=== PATIENT | male | born 1950 | race Caucasian/White ===

== ENCOUNTER → 2023-09-16 09:36 | Outpatient (REF) | payer MEDICARE, SELFPAY | LOC: HWRAD 09:36 | PROVIDERS: ATTENDING PHYSICIAN Family Medicine | DX: M25.561 Pain in right knee (principal) | CPT/HCPCS: 73564 ==

== ENCOUNTER 2023-10-10 16:46 | Observation (INO) | payer MEDICARE, SELFPAY ==
[2023-10-10] VITALS (10 sets, daily range): BP systolic 136–171; BP diastolic 74–92; BMI 39.2
--- NOTE | 2023-10-10 10:34 | ED.GENMED ---
History of Present Illness
<Tea Cruz PA-C - Last Filed: 10/10/23 18:32>
General
Chief Complaint: Breathing Problem
Source: patient
Exam Limitations: none
Time Seen by Provider: 10/10/23 10:23
Nursing documentation reviewed up to this point in time: agreed with
History of Present Illness
History of Present Illness:
73-year-old male with a history of hypertension, hyperlipidemia, 2 unprovoked DVT and 1 PE not anticoagulated
Presents for 3 days of shortness of breath. 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 There was dust that came up into the air from the ground. He is not sure if that exacerbated the
symptoms. He does have a diagnosis of COPD and used to smoke for 40 years. He has not smoked in several years. He is on Anoro inhaler and has a rescue albuterol inhaler which he did try which did not give him any relief. He did not recall
coughing or any initial symptoms while he was in his chicken coop.
What he is mostly feeling is exertional fatigue and dyspnea with some mild degree of chest pressure at times. He says normally he can walk up a flight of steps and sometimes he will be a little bit winded but more recently since Tuesday he has
been much more short of breath than usual. He also has a very subtle discomfort in his chest but she is not sure if that is anxiety.
Patient has no chest pressure at rest. He is not having a fever, cough, hemoptysis, worsening leg swelling than usual. Previously he had a DVT in his left leg that did embolized to his lungs. This leg is always slightly larger than the right.
Sometimes his legs do swell up during the day and go down at night and he is on a diuretic. He does not feel like his legs are more swollen than normal. He does not have any leg pain.
He recently stopped his baby aspirin because he was finding that he was bruising or bleeding easily.
He had a cardiac cath in 2021 showing nonocclusive coronary disease
No intervention
Past History
<Tea Cruz PA-C - Last Filed: 10/10/23 18:32>
Past History
ED Past Medical History: Cancer, HTN, Hypercholesterolemia and Other
ED Past Surgical History: Other
Social History
Tobacco: Former smoker
Personal:
Living: with family
Employment: Employed
Review of Systems
<Tea Cruz PA-C - Last Filed: 10/10/23 18:32>
Review of Systems
Allergies reviewed?: Yes
All Other Systems: Not applicable
Phy Exam
<Tea Cruz PA-C - Last Filed: 10/10/23 18:32>
Physical Exam
Physical Exam:
GENERAL: Alert , in no apparent distress
EYE: pupils equal and reactive
NECK: Supple
ENT: o/p clr, mmm.
CARDIAC: Regular rate and rhythm .
LUNGS: Clear breath sounds bilaterally, no acute respiratory distress, no wheezes/rales/rhonchi
ABDOMEN: Soft, without focal tenderness, no r/g, no cvat, normal bowel sounds
NEUROLOGICAL: Alert and oriented, no focal neuro deficits
SKIN: Warm and dry, skin intact.
MUSCULOSKELETAL: No edema, well perfused. neg erasto's sign
PSYCH: Normal and appropriate interaction.
Scores
<Tea Cruz PA-C - Last Filed: 10/10/23 18:32>
Heart Failure Risk
Heart Failure Risk Score: Not Applicable
Course
<Tea Cruz PA-C - Last Filed: 10/10/23 18:32>
Orders/Labs/Results
Orders:
Orders
10/10/23 10:12
Electrocardiogram (*1) Urgent
Reason for Study: Shortness of Breath
EKG- Treatment ONCE
10/10/23 10:33
Cardiac Monitoring- Treatment ONCE
10/10/23 10:46
Ipratropium/Albuterol Sulfate [Duoneb] 3 ml INH R NOW ONE
10/10/23 10:50
Complete Blood Count/With Diff Urgent
Comprehensive Metabolic Panel Urgent
D-Dimer Urgent
NT-proBNP Urgent
Troponin I Urgent
10/10/23 11:23
CT Chest Pe Study Urgent
Comment:
Reason For Exam: sob, h/o dvt/pe, not anticoag
10/10/23 12:53
Venous Doppler Lwr Ext Bilat [US Periph Venous LOWER Ext Anthony] Urgent
Comment:
Reason For Exam: h/o dvt, sob
10/10/23 13:39
EKG [Electrocardiogram (*1)] Urgent
Reason for Study: Chest Pain
EKG- Treatment ONCE
10/10/23 14:11
Consult Cardiology [CARDIOLOGY CONSULT] Urgent
Consulting Provider: Júnior Benson
Was physician already notified: Yes
10/10/23 14:36
Troponin I Urgent
10/10/23 Dinner
Cholesterol Lowering
At Your Request: Full Participation
Cholesterol Lowering: Sodium, 2 Gram
10/10/23 16:02
Admit/Transfer Patient As Directed
Co-Sign Provider:
Level of Care: Observation services
Assign to:: Telemetry
Physician / Group: Dr Franco
Diagnosis: Chest pain/SOB
Reason for Telemetry: Chest Pain syndromes
Date to Stop Telemetry: 10/12/23
Time to Stop Telemetry: 11:00
PRN Pain Medication Management As Directed
May give lesser potent ordered pain med per pt: Yes
preference::
Protocol:: Medication orders for pain may be administered in a
manner that supports deferring to patient preference
when the pt is:
- Requesting an ordered lesser potent pain medication.
Least to most potent pain medications are defined
as: acetaminophen < NSAID < tramadol < opioids
(morphine, oxycodone, hydromorphone).
- Requesting a lesser dose of the same medication IF
ORDERED.
- Requesting a less intrusive route of administration
if both routes are prescribed by the provider (PO <
IV).
10/10/23 16:03
Code Status As Directed
Resuscitation Status: Full Code
10/10/23 17:22
Albuterol [ProAIR HFA INHALER] 2 puff INH R Q6HPRN PRN
Bisacodyl [Dulcolax] 10 mg RECTAL [id number] PRN
Docusate W/Senna [Senokot-S] 1 tablet PO BIDPRN PRN
Polyethylene Glycol Powder [Miralax] 17 grams PO DAILYPRN PRN
10/10/23 17:22
Activity As Directed
Activity Level: Out of Bed-Early Mobility
Vital Signs As Directed
Frequency: Per unit guidelines
DX Deep Vein Thrombosis Video Routine
10/10/23 18:00
Atenolol [Tenormin] 50 mg PO QPM
Enoxaparin Sodium [Lovenox] 40 mg SC QPM
Finasteride [Proscar] 5 mg PO QPM
Hydrochlorothiazide [Oretic] 25 mg PO QPM
Rosuvastatin Calcium [Crestor] 40 mg PO QPM
Spironolactone [Aldactone] 25 mg PO QPM
10/10/23 20:00
Troponin I Q8H
10/11/23 04:00
Troponin I Q8H
10/11/23 06:00
Basic Metabolic Panel IN AM
Complete Blood Count/With Diff IN AM
Levothyroxine [Synthroid] 150 mcg PO DAILY@0600
10/11/23 08:00
Aspirin Chewable [Low Strength Aspirin] 81 mg PO DAILY
fluticasone propionate 2 spray NASAL DAILY
10/12/23 11:00
DC Protocol for Telemetry ONCE
Abnormal Lab Results
10/10/23
10:50
Plt Count 122 L 10^3/uL
(130-400)
Abs Immat Gran (auto) 0.1 H 10^3/uL
(0-0.05)
Absolute Monos (auto) 0.7 H 10^3/uL
(0.1-0.6)
Immature Gran % 0.7 H %
(0-0.5)
Lymphocytes % 16.3 L %
(20.5-51.1)
Monocytes % 9.4 H %
(1.7-9.3)
D-Dimer 3.36 H ug/mlFEU
(0.00-0.50)
BUN 36 H mg/dl
(9-20)
10/10/23 10:50
10/10/23 10:50
Vital Signs
Initial and Last Documented VS:
Initial Vital Signs
Temp Pulse Resp BP Pulse Ox
98.0 F 59 16 150/84 98
10/10/23 10:10 10/10/23 10:10 10/10/23 10:10 10/10/23 10:10 10/10/23 10:10
Last Documented Vital Signs
Temp Pulse Resp BP Pulse Ox
98 F 56 17 147/92 94
10/10/23 17:50 10/10/23 17:50 10/10/23 17:50 10/10/23 17:50 10/10/23 18:22
<Anderson Irwin, DO - Last Filed: 10/10/23 15:44>
Orders/Labs/Results
Orders:
Orders
10/10/23 10:12
Electrocardiogram (*1) Urgent
Reason for Study: Shortness of Breath
EKG- Treatment ONCE
10/10/23 10:33
Cardiac Monitoring- Treatment ONCE
10/10/23 10:46
Ipratropium/Albuterol Sulfate [Duoneb] 3 ml INH R NOW ONE
10/10/23 10:50
Complete Blood Count/With Diff Urgent
Comprehensive Metabolic Panel Urgent
D-Dimer Urgent
NT-proBNP Urgent
Troponin I Urgent
10/10/23 11:23
CT Chest Pe Study Urgent
Comment:
Reason For Exam: sob, h/o dvt/pe, not anticoag
10/10/23 12:53
Venous Doppler Lwr Ext Bilat [US Periph Venous LOWER Ext Anthony] Urgent
Comment:
Reason For Exam: h/o dvt, sob
10/10/23 13:39
EKG [Electrocardiogram (*1)] Urgent
Reason for Study: Chest Pain
EKG- Treatment ONCE
10/10/23 14:11
Consult Cardiology [CARDIOLOGY CONSULT] Urgent
Consulting Provider: Júnior Benson
Was physician already notified: Yes
10/10/23 14:36
Troponin I Urgent
10/10/23 Dinner
Cholesterol Lowering
At Your Request: Full Participation
Cholesterol Lowering: Sodium, 2 Gram
10/10/23 16:02
Admit/Transfer Patient As Directed
Co-Sign Provider:
Level of Care: Observation services
Assign to:: Telemetry
Physician / Group: Dr Franco
Diagnosis: Chest pain/SOB
Reason for Telemetry: Chest Pain syndromes
Date to Stop Telemetry: 10/12/23
Time to Stop Telemetry: 11:00
PRN Pain Medication Management As Directed
May give lesser potent ordered pain med per pt: Yes
preference::
Protocol:: Medication orders for pain may be administered in a
manner that supports deferring to patient preference
when the pt is:
- Requesting an ordered lesser potent pain medication.
Least to most potent pain medications are defined
as: acetaminophen < NSAID < tramadol < opioids
(morphine, oxycodone, hydromorphone).
- Requesting a lesser dose of the same medication IF
ORDERED.
- Requesting a less intrusive route of administration
if both routes are prescribed by the provider (PO <
IV).
10/10/23 16:03
Code Status As Directed
Resuscitation Status: Full Code
10/10/23 17:22
Albuterol [ProAIR HFA INHALER] 2 puff INH R Q6HPRN PRN
Bisacodyl [Dulcolax] 10 mg RECTAL [id number] PRN
Docusate W/Senna [Senokot-S] 1 tablet PO BIDPRN PRN
Polyethylene Glycol Powder [Miralax] 17 grams PO DAILYPRN PRN
10/10/23 17:22
Activity As Directed
Activity Level: Out of Bed-Early Mobility
Vital Signs As Directed
Frequency: Per unit guidelines
DX Deep Vein Thrombosis Video Routine
10/10/23 18:00
Atenolol [Tenormin] 50 mg PO QPM
Enoxaparin Sodium [Lovenox] 40 mg SC QPM
Finasteride [Proscar] 5 mg PO QPM
Hydrochlorothiazide [Oretic] 25 mg PO QPM
Rosuvastatin Calcium [Crestor] 40 mg PO QPM
Spironolactone [Aldactone] 25 mg PO QPM
10/10/23 20:00
Troponin I Q8H
10/11/23 04:00
Troponin I Q8H
10/11/23 06:00
Basic Metabolic Panel IN AM
Complete Blood Count/With Diff IN AM
Levothyroxine [Synthroid] 150 mcg PO DAILY@0600
10/11/23 08:00
Aspirin Chewable [Low Strength Aspirin] 81 mg PO DAILY
fluticasone propionate 2 spray NASAL DAILY
10/12/23 11:00
DC Protocol for Telemetry ONCE
Abnormal Lab Results
10/10/23
10:50
Plt Count 122 L 10^3/uL
(130-400)
Abs Immat Gran (auto) 0.1 H 10^3/uL
(0-0.05)
Absolute Monos (auto) 0.7 H 10^3/uL
(0.1-0.6)
Immature Gran % 0.7 H %
(0-0.5)
Lymphocytes % 16.3 L %
(20.5-51.1)
Monocytes % 9.4 H %
(1.7-9.3)
D-Dimer 3.36 H ug/mlFEU
(0.00-0.50)
BUN 36 H mg/dl
(9-20)
10/10/23 10:50
10/10/23 10:50
Vital Signs
Initial and Last Documented VS:
Initial Vital Signs
Temp Pulse Resp BP Pulse Ox
98.0 F 59 16 150/84 98
10/10/23 10:10 10/10/23 10:10 10/10/23 10:10 10/10/23 10:10 10/10/23 10:10
Last Documented Vital Signs
Temp Pulse Resp BP Pulse Ox
98 F 56 17 147/92 94
10/10/23 17:50 10/10/23 17:50 10/10/23 17:50 10/10/23 17:50 10/10/23 18:22
<Tea Cruz PA-C - Last Filed: 10/10/23 18:32>
MDM/Problems Addressed
Differential Diagnosis Includes:
cad, acs, copd, angina
MDM/Problems Addressed:
73 y/o M with htn, hld, nonocclusive CAD on cath by [facility] in 2021; has had 2 days of exertional dyspnea and some chest heaviness; does have COPD but idon't think that is the cause;
ekg nonischemic, trop neg
d dimer was elevated and he has PE history so i did a PE study which was neg but he has signfiicant aortic calcifications
given his concerning sypmtoms, will consult cardiology and dispo per their recommendation; d/w dr. irwin who took over care
<Tea Cruz PA-C - Last Filed: 10/10/23 18:32>
*Critical Care Note
Total Time (30-74mins, 75-104mins- exclusive of procedures): Not Applicable
ED Attending Note
<Tea Cruz PA-C - Last Filed: 10/10/23 18:32>
-
Portions of this chart may have been created with voice recognition software.� Occasional wrong word or��sound alike� substitutions may have occurred due to the inherent limitations of voice recognition software.
<Anderson Irwin, - Last Filed: 10/10/23 15:44>
ED Attending Note
Patient seen and examined by attending physician: Yes
I performed the substantive portion of visit, reviewed & personally made and approve the management plan that is documented in note by myself or KRISH.: Yes
ED Attending Note:
73-year-old male who presents with off-and-on chest discomfort and shortness of breath. Patient does admit to history of COPD. Symptoms have been ongoing for about 2 days. Does report tightness in his chest when it occurs. Exam: No wheezing,
heart regular, obese. Assessment plan: Evaluated by cardiology who recommends admit/ops given his CT findings and risks. I did review his cardiac catheterization from the past that did not show significant coronary disease. CT did show
calcification of his coronaries however.
Discharge Plan
Departure
Patient Disposition: Admit
Date of Disposition: 10/10/23
Time of Disposition: 15:44
Admit to: Telemetry
Presentation/result/management discussed w/ accepting MD/DO: Hospitalist
Discharge Problem:
Chest pain
Interventions
Interventions:
*Risk Screen - Suicide Last Done: 10/10/23 10:46
*General Assessment Last Done: 10/10/23 10:46
*Neglect/Abuse Screening Last Done: 10/10/23 10:46
ED- Fall Risk Assessment Last Done: 10/10/23 10:46
*ED COVID-19 Vaccine History Last Done: 10/10/23 10:46
*Nursing Disposition Last Done: 10/10/23 17:32
ED- Cardiac Assessment Last Done: 10/10/23 10:46
ED- Pulmonary Assessment Last Done: 10/10/23 10:46
Discharge Date and Time
Discharge Date/Time: 10/10/23 17:32
[2023-10-10 11:17] LABS: ALT (SGPT) 38 U/L (0-50); AST (SGOT) 34 U/L (17-59); Albumin 4.4 g/dl (3.5-5.0); Alkaline Phosphatase 58 U/L (38-126); Blood Urea Nitrogen 36 mg/dl (9-20); Calcium 9.4 mg/dl (8.4-10.2); Carbon Dioxide 26 mmol/L (22-30); Chloride 105 mmol/L (98-107); D-Dimer 3.36 ug/mlFEU (0.00-0.50); Glucose 96 mg/dl (70-99); Potassium 4.4 mmol/L (3.5-5.1); Sodium 141 mmol/L (135-145); Total Protein 6.8 g/dl (6.3-8.2); eGFR 58.01
[2023-10-10 11:18] LABS: % Basophils 0.5 % (0-2); % Eosinophils 2.1 % (0-6); % Immature Granulocytes 0.7 % (0-0.5); % Lymphocytes 16.3 % (20.5-51.1); % Monocytes 9.4 % (1.7-9.3); Absolute Eosinophils 0.2 10^3/uL (0-0.7); Absolute Immature Granulocytes 0.1 10^3/uL (0-0.05); Absolute Lymphocytes 1.2 10^3/uL (1.2-3.4); Absolute Monocytes 0.7 10^3/uL (0.1-0.6); Absolute Neutrophils 5.4 10^3/uL (1.4-6.5); Hematocrit 44.1 % (39.0-52.0); Mean Corpuscular Hgb 30.3 pg (27.0-31.0); Mean Corpuscular Volume 89.1 fL (80.0-94.0); Mean Platelet Volume 10.4 fL (7.4-10.4); Nucleated Red Blood Cells % 0 % (-); Platelet Count 122 10^3/uL (130-400); Red Blood Cell Count 4.95 10^6/uL (4.70-6.10); Red Cell Dist. Width 14.5 % (11.5-14.5); White Blood Cell Count 7.6 10^3/uL (4.8-10.8)
[2023-10-10] MEDS: DUONEB 3 ML INH (11:22)
[2023-10-10 11:29] LABS: NT-proBNP 240 pg/ml; Troponin I < 0.012 ng/ml
[2023-10-10 15:13] LABS: Troponin I < 0.012 ng/ml
--- NOTE | 2023-10-10 15:32 | CON.CAR ---
Addendum entered and electronically signed by Júnior Benson MD 10/10/23 17:14:
I saw and examined the patient.
The PROSTHETICS TECHNICIAN's note was reviewed and I agree with the note however I would suggest additional observation considering patient's history of nonobstructive disease and recurrent symptoms.
73 yo male with nonobstructive CAD on cath 02/2021, HTN, HLD, , RLE DVT 2018, LLE DVT 2019 and COPD episodic shortness of breath and chest discomfort over the last 2 days. 15-minute episode of feeling short of breath and also felt chest with some
sort of tight yesterday. Episode occurred about 10 minutes after doing some activity outside and working out the dust. Next episode occurred this morning after eating. And then he had a third episode. All episodes were self-limited. Exact
etiology unclear. ECG without ischemic changes first troponin unremarkable. Patient with known history of nonobstructive coronary disease. Possibility of angina is a consideration. Would also consider noncardiac causes. Patient has baseline
shortness of breath and COPD which may be contributing factors. Also possibility of GERD is a consideration.
-Observation
-Serial troponins
-Treatment of COPD as directed by primary team
-PPI
-Continue aspirin 81 mg a day
-If troponins remain unremarkable and patient remains chest pain-free then plan for Lexiscan in a.m.
-If patient with significant rise in troponins then would consider cardiac catheterization
Original Note:
Consultation
Consultation Request
Date/Time Consultation Requested: 10/10/23 3p
Date/Time Consultation Performed: 10/10/23 3:30p
Requesting Provider: Tea Cruz PA-C
Performing Provider: CLAUDIA Bellamy for Dr. Benson
Reason for Consultation: SOB/chest tightness
Medical History
-
Chief Complaint: SOB/chest tightness
History of Present Illness:
Mr. El is a 73 yo male with nonobstructive CAD on cath 02/2021, HTN, HLD, obesity, mild SOTERO, RLE DVT 2018 and LLE DVT 2019 and COPD, who presents to the ER with c/o SOB and chest tightness. He states chasing after his chickens to round them up on
Tuesday10/08/23 and after he sat down inside he felt SOB and mild chest tightness. This lasted for 15 mins and symptoms resolved on their own. He states is was daquan in the chicken coop and maybe dust got into his lungs. Then yesterday after
lunch he was sitting and again felt SOB with mild chest tightness, lasted 15 mins then resolved on its own. Today again he had the same symptoms after he was done doing light yard work, so he came in to be evaluated. Currently he denies any
symptoms. Chest CT showed no evidence of pulmonary embolism or thoracic aortic dissection, minimal bibasilar subsegmental atelectasis, otherwise clear lungs, pronounced coronary arterial calcification.
Past Medical History
Past Medical History: Other (as above)
Past Surgical History: Other (as above)
Social History
Tobacco: Former Smoker
Personal:
Living: With Family
Family History
Family History: Reviewed & Not Pertinent
Allergies / Home Medications
Allergy/AdvReac Type Severity Reaction Status Date / Time
No Known Allergies Allergy Verified 10/10/23 10:11
�Medication �Instructions �Recorded �Confirmed �Type
atenolol 50 mg tablet 50 mg PO QPM 12/28/18 02/27/21 History
atorvastatin 40 mg tablet 40 mg PO QPM 12/28/18 02/27/21 History
finasteride 5 mg tablet 5 mg PO QPM 12/28/18 02/27/21 History
fluticasone propionate 50 2 spray intranasal DAILY 12/28/18 02/27/21 History
mcg/actuation nasal
spray,suspension
hydrochlorothiazide 25 mg tablet 25 mg PO QPM 12/28/18 02/27/21 History
levothyroxine 200 mcg tablet 175 mcg PO DAILY 12/28/18 02/27/21 History
(Synthroid)
loratadine 10 mg tablet 10 mg PO DAILY 12/28/18 02/27/21 History
spironolactone 50 mg tablet 25 mg PO QPM 12/28/18 02/27/21 History
aspirin 81 mg tablet,delayed 81 mg PO QPM ##0 02/27/21 02/27/21 Rx
release (Aspir-Low)
umeclidinium 62.5 mcg-vilanterol 1 ea IH QPM 02/27/21 02/27/21 History
25 mcg/actuation powdr for
inhalation (Anoro Ellipta)
Review of Systems
-
History Source: Patient
All other systems: Negative unless noted
Physical Exam
Vital Signs
Temp Pulse Resp BP Pulse Ox
98.0 F 55 20 149/77 92
10/10/23 10:10 10/10/23 14:36 10/10/23 14:36 10/10/23 12:00 10/10/23 13:45
Lab Results
10/10/23 10:50
10/10/23 10:50
Troponin I < 0.012 ng/ml 10/10/23 14:36
Qlk-K-Issmkainnoa Pept 240 pg/ml 10/10/23 10:50
Physical Exam
General: Well Developed, Well Nourished and No Apparent Distress
HEENT: Normocephalic, Anicteric and Moist Mucous Membranes
Respiratory: Clear (diminished b/l bases)
Cardiac: S1/S2 and Regular Rhythm
Breast: Deferred by me
GI: Soft, Non Tender, Non Distended and Normal Bowel Sounds
Rectal: Deferred by Provider
Genito-urinary: No Costovertebral Tender
Musculoskeletal: No Clubbing, No Cyanosis and No Edema
Skin: Warm and Dry
Neuro: AO x 3
Psych: Calm
Impression / Plan
-
SOB and chest tightness - occurs after exertion when sitting.
- not during exertion.
- initial troponin < 0.012, second trop pending.
- if second troponin is negative, then can follow up as outpatient with Lexiscan nuclear stress test.
- if second troponin is abnormal, then admit observation and can have Lexiscan nuclear stress test tomorrow.
CAD - nonobstructive on cath 02/2021.
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
- he stopped ASA last month due to nuisance bleeding with scratches from the chickens.
- restart ASA 81mg daily.
COPD - chronic.
- managed by Dr. Almonte.
- mild SOTERO, noncompliant with CPAP mask in the summer due to heat.
HTN - stable.
- continue atenolol, HCTZ, Aldactone.
HLD - LDL 110 from 02/2023 on Lipitor 40mg daily.
- goal LDL is < 70.
Data Reviewed
-
EKG: Tracing Personally Visualized and interpreted (SB 51 bpm first degree AVB)
CT Scan: Report Reviewed by me (Chest CT showed no evidence of pulmonary embolism or thoracic aortic dissection, minimal bibasilar subsegmental atelectasis, otherwise clear lungs, pronounced coronary arterial calcification.)
Medical Tests (Nuc Med, Echo etc): Report Reviewed by me (cath 02/2021: nonobstructive CAD, 30% pLAD long area myocardial bridging in the mid LAD )
Labs: Labs Reviewed by me
Old Records: Reviewed
--- NOTE | 2023-10-10 16:06 | HPS.HSE ---
Family Physician
-
Family Physician: Olman Veras
Chief Complaint
-
Chest pain and shortness of breath
History of Present Illness
Patient is 73 years old male with history of hypertension, hyperlipidemia, PE, thyroid cancer with hypothyroidism on thyroid replacement, nonobstructive CAD, obesity, SOTERO, presented to the hospital with shortness of breath and chest discomfort.
Patient has been having symptoms over the last 2 days feeling short of breath on exertion associated with chest tightness midsternal with no radiation lasting a few minutes and resolving on its own. Chest pain unrelated to exertion. He did have
some work with his chickens and some light yard work and he has been having shortness of breath much worse and he was feeling anxious so decided to come to the hospital. He does have some lower extremity edema but that is mostly chronic but no leg
pain. Denies any fevers or chills. Denies any worsening cough. Denies any nausea vomiting or diarrhea. He had a CT scan of the chest no evidence of PE but showed some coronary calcifications. ED contacted cardiology who is seen him in the ER.
He was referred to hospitalist for further evaluation.
Medical History
Past Medical History
Past Medical History: Reports Other (Hypertension, hyperlipidemia, thyroid cancer, hypothyroidism, DVT/PE, COPD.)
Past Surgical History: Reports None
Social History
Tobacco: Former Smoker
Alcohol: None
Drug: None
Family History
Family History: CAD
Allergies / Home Medications
Allergies reflects when Allergies were last updated in [facility].
Home Medications with original date entered in [facility]
Allergy/Medication List:
Allergies
Allergy/AdvReac Type Severity Reaction Status Date / Time
No Known Allergies Allergy Verified 10/10/23 10:11
Home Medications
atenolol 50 mg tablet 50 mg PO QPM 12/28/18
atorvastatin 40 mg tablet 40 mg PO QPM 12/28/18
finasteride 5 mg tablet 5 mg PO QPM 12/28/18
fluticasone propionate 50 mcg/actuation nasal spray,suspension 2 spray intranasal DAILY 12/28/18
hydrochlorothiazide 25 mg tablet 25 mg PO QPM 12/28/18
levothyroxine 200 mcg tablet (Synthroid) 175 mcg PO DAILY 12/28/18
loratadine 10 mg tablet 10 mg PO DAILY 12/28/18
spironolactone 50 mg tablet 25 mg PO QPM 12/28/18
aspirin 81 mg tablet,delayed release (Aspir-Low) 81 mg PO QPM ##0 02/27/21
umeclidinium 62.5 mcg-vilanterol 25 mcg/actuation powdr for inhalation (Anoro Ellipta) 1 ea IH QPM 02/27/21
Review of Systems
-
A 12 point ROS was completed and negative except as noted: Yes
Physical Exam
Vital Signs
Vital Signs
Temp Pulse Resp BP Pulse Ox
98.0 F 53 16 136/74 92
10/10/23 10:10 10/10/23 15:45 10/10/23 15:45 10/10/23 14:39 10/10/23 15:45
Physical exam:
General: Well Developed, Well Nourished and No Apparent Distress
HEENT: Normocephalic, Atraumatic and Moist Mucous Membranes
Respiratory: Clear to Auscultation; Negative Wheezes, Rales or Rhonchi
Cardiac: Regular Rhythm and S1/S2
GI: Soft, Nontender and Nondistended
Musculoskeletal: Mild lower extremity edema bilaterally. No Clubbing, No Cyanosis
Neuro: Awake, Alert and Oriented
Psych: Calm
Physical Exam
General: Other
Laboratory Results
-
10/10/23 10:50
10/10/23 10:50
Laboratory Results
Total Bilirubin 1.0 mg/dl (0.2-1.3) 10/10/23 10:50
AST 34 U/L (17-59) 10/10/23 10:50
ALT 38 U/L (0-50) 10/10/23 10:50
Alkaline Phosphatase 58 U/L (38-126) 10/10/23 10:50
Troponin I < 0.012 ng/ml 10/10/23 14:36
Data Reviewed
-
Diagnostic Radiology: Image Personally Visualized and interpreted
Lab Data: Labs Reviewed by me
Impression/Plan
-
IMPRESSION:
Patient 73 years old male with history of hypertension, hyperlipidemia, DVT in the past, COPD, came into the hospital chest pain or shortness of breath. CTA negative for PE and ultrasound of the legs negative for DVT.
Impression:
Chest pain/shortness of breath-rule out ACS
Conditions prior to presentation:
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
Hyperlipidemia
COPD-no evidence of exacerbation
VTE
Hypothyroidism
PLAN:
Check cardiac enzymes
Resume aspirin (not very keen since he has bleeding from skin with minor trauma)
phototypesetting equipment monitor
Cardiology consult
Inhalers as needed
Continue home antihypertensives
Continue statins
Continue to replacement
Time spent 55-minute
--- NOTE | 2023-10-10 18:24 | PTCARENOTE ---
pt presents from ED via stretcher. pt is AAO*3, vss, room air. c/o slight pain mid epigastric/chest pain. pt is oriented to the room. call lucas within the reach. plan of care ongoing.
[2023-10-10] MEDS: TENORMIN 50 MG PO (18:31)
[2023-10-10] MEDS: ORETIC 25 MG PO (18:31)
[2023-10-10] MEDS: PROSCAR 5 MG PO (18:31)
[2023-10-10] MEDS: ALDACTONE 25 MG PO (18:31)
[2023-10-10] MEDS: CRESTOR 40 MG PO (19:17)
[2023-10-10] MEDS: SPIRIVA RESPIMAT 2.5 MCG 2 PUFF INH (19:49)
[2023-10-10] MEDS: STRIVERDI RESPIMAT 2 PUFF INH (19:50)
[2023-10-10 20:48] LABS: Troponin I < 0.012 ng/ml
[2023-10-11 03:30] VITALS: BP 148/89
[2023-10-11 05:09] LABS: Troponin I 0.026 ng/ml
[2023-10-11] MEDS: SYNTHROID 150 MCG PO (05:10)
[2023-10-11 05:24] LABS: Blood Urea Nitrogen 29 mg/dl (9-20); Calcium 9.6 mg/dl (8.4-10.2); Carbon Dioxide 27 mmol/L (22-30); Chloride 102 mmol/L (98-107); Estimated Creatinine Clearance 60 ml/min; Glucose 88 mg/dl (70-99); Potassium 4.6 mmol/L (3.5-5.1); Sodium 139 mmol/L (135-145); eGFR 53.07
[2023-10-11 05:31] LABS: % Basophils 0.4 % (0-2); % Eosinophils 2.7 % (0-6); % Immature Granulocytes 0.4 % (0-0.5); % Lymphocytes 21.7 % (20.5-51.1); % Monocytes 10.1 % (1.7-9.3); % Neutrophils 64.7 % (42.2-75.2); Absolute Eosinophils 0.2 10^3/uL (0-0.7); Absolute Lymphocytes 1.6 10^3/uL (1.2-3.4); Absolute Monocytes 0.8 10^3/uL (0.1-0.6); Absolute Neutrophils 4.9 10^3/uL (1.4-6.5); Hematocrit 46.2 % (39.0-52.0); Hemoglobin 15.6 g/dL (13.0-18.0); Mean Corp Hgb Conc. 33.8 g/dL (33.0-37.0); Mean Corpuscular Volume 91.8 fL (80.0-94.0); Nucleated Red Blood Cells % 0 % (-); Platelet Count 122 10^3/uL (130-400); Red Blood Cell Count 5.03 10^6/uL (4.70-6.10); Red Cell Dist. Width 14.3 % (11.5-14.5); White Blood Cell Count 7.5 10^3/uL (4.8-10.8)
[2023-10-11 06:00] VITALS: BMI 39.0
[2023-10-11 07:20] VITALS: BP 149/80
--- NOTE | 2023-10-11 08:50 | W.PN.HOSP.TC ---
Addendum entered and electronically signed by Quincy Franco MD 10/11/23 14:10:
It appears cardiology was planning to do a cardiac cath but now cancelled plans. I went and talked to patient and at bedside (RN at bedside as well) and informed them cardiac cath has been cancelled and planning possible stress test by
cardiology-cardiology will elaborate further if needed.
Original Note:
Today's Communication/Plan
-
Continue cardiac monitoring and trending cardiac enzymes. Cardiology reeval.
Assessment / Plan
Assessment / Plan
Physical exam:
General: Well Developed, Well Nourished and No Apparent Distress
HEENT: Normocephalic, Atraumatic and Moist Mucous Membranes
Respiratory: Clear to Auscultation; Negative Wheezes, Rales or Rhonchi
Cardiac: Regular Rhythm and S1/S2
GI: Soft, Nontender and Nondistended
Musculoskeletal: Mild lower extremity edema bilaterally. No Clubbing, No Cyanosis
Neuro: Awake, Alert and Oriented
Psych: Calm
A/P:
Impression:
Chest pain/shortness of breath-rule out ACS
Conditions prior to presentation:
Hypertension
Hyperlipidemia
COPD-no evidence of exacerbation
VTE
Hypothyroidism
PLAN:
Check cardiac enzymes--> remains within normal limits but there was an upward trend in the last couple of troponin so we will ask cardiology to reevaluate.
Continue aspirin (not very keen since he has bleeding from skin with minor trauma)
satellite project site monitor
Cardiology consult appreciated
Inhalers as needed
Continue home antihypertensives
Continue statins
Continue thyroid replacement
DVT prophylaxis-Lovenox
Code status-Full code
Discharge planning only after cardiology clearance
Anticipated Discharge: 24 - 48 hours
Subjective/Interval History
-
Date of Service: October 11, 2023
Patient had an episode of chest discomfort associated with shortness of breath today. No nausea or vomiting. No worsening cough. Afebrile
Objective Data
-
Labs:
Laboratory Results
10/11/23
04:17
WBC 7.5
Hgb 15.6
Hct 46.2
Plt Count 122 L
Sodium 139
Potassium 4.6
Chloride 102
Carbon Dioxide 27
BUN 29 H
Creatinine 1.4 H
Glucose 88
Calcium 9.6
Vital Signs:
Vital Signs
Temp Pulse Resp BP Pulse Ox
97.8 F 48 20 149/80 94
10/11/23 07:20 10/11/23 07:20 10/11/23 07:20 10/11/23 07:20 10/11/23 07:20
[2023-10-11] MEDS: LOW STRENGTH ASPIRIN 81 MG PO (08:57)
--- NOTE | 2023-10-11 08:58 | PTCARENOTE ---
Pt feeling chest tightness, gave ASA scheduled, putting in order for EKG and MD notified, No other symptoms.
[2023-10-11 09:35] LABS: Troponin I 0.028 ng/ml
--- NOTE | 2023-10-11 11:04 | CM ---
Chart reviewed and met with pt at bedside; IA completed.
Urbano lives with his in a 2 story home with no entry steps.
He reports being (I) amb and adls [employer]; No hx of VN/DME/SNF.
Pharmacy: [facility]
PCP-Gareth Carpenter
Pt anticipates discharge home with no needs once medically stable.
CM will follow and assist with d/c needs as identified during hospitalization.
PLAN: home with no anticipated needs
[2023-10-11 11:46] VITALS: BP 126/78
[2023-10-11 15:20] VITALS: BP 130/81
--- NOTE | 2023-10-11 17:02 | W.PN.CD ---
Today's Communication / Plan
-
plan for inpatient stress tomorrow, make NPO@MN
Impression / Plan
-
SOB and chest tightness - occurs after exertion when sitting
- not during exertion.
- initial troponin < 0.012, then trended up (0.026-->0.028) but not over upper limit of normal
- will plan for inpatient nuclear stress test tomorrow, please make NPO@MN
CAD - nonobstructive on cath 02/2021
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
- he stopped ASA last month due to nuisance bleeding with scratches from the chickens.
- restart ASA 81mg daily.
COPD - chronic.
- managed by Dr. Almonte.
- mild SOTERO, noncompliant with CPAP mask in the summer due to heat.
HTN - stable.
- continue atenolol, HCTZ, Aldactone.
HLD - LDL 110 from 02/2023 on Lipitor 40mg daily.
- goal LDL is < 70.
Physical Exam
Vital Signs/Labs
Vital Signs
Temp Pulse Resp BP Pulse Ox
36.7 C 63 20 130/81 94
10/11/23 15:20 10/11/23 15:20 10/11/23 15:20 10/11/23 15:20 10/11/23 15:20
10/10/23 10/11/23 10/12/23
06:59 06:59 06:59
Actual Weight 119.6 kg
10/11/23 04:17
10/11/23 04:17
10/10/23
10:50
Ure-L-Qqhkjbxcnks Pept 240
LAB Results
10/10/23 10/10/23 10/10/23
10:50 14:36 20:18
Troponin I < 0.012 < 0.012 < 0.012
10/11/23 10/11/23
04:17 09:02
Troponin I 0.026 D 0.028
Physical Exam
Constitutional: No acute distress and Comfortable
Cardiovascular: Rhythm & rate is regular, Pedal edema is absent, Systolic murmur absent and Diastolic murmur absent
Respiratory: Respiratory effort normal, Lungs clear to auscul., Wheeze Absent, Crackles Absent and Rhonchi Absent
Neuro/Psych: Alert, Oriented and AO x 3
Other: Other (good radial pulses)
Data Reviewed
-
Date of Service: October 11, 2023
Medical Decision Making: Reviewed Test Results and Review of Case with other Provider
EKG: Tracing Personally Visualized and interpreted
X-Ray/CT/US/MRI/NUC/PET: Report Reviewed by me
Medical Tests (PFT, Pathology etc): Image Personally Visualized and interpreted (prior cardiac cath)
Labs: Labs Reviewed by me
[2023-10-11] MEDS: ORETIC 25 MG PO (17:07)
[2023-10-11] MEDS: PROSCAR 5 MG PO (17:07)
[2023-10-11] MEDS: TENORMIN 50 MG PO (17:07)
[2023-10-11] MEDS: ALDACTONE 25 MG PO (17:07)
[2023-10-11] MEDS: CRESTOR 40 MG PO (17:07)
[2023-10-11 19:50] VITALS: BP 128/77
[2023-10-11] MEDS: STRIVERDI RESPIMAT 2 PUFF INH (20:00)
[2023-10-11] MEDS: SPIRIVA RESPIMAT 2.5 MCG 2 PUFF INH (20:00)
[2023-10-11 23:43] VITALS: BP 122/79
[2023-10-12 03:04] VITALS: BP 126/78
[2023-10-12] MEDS: SYNTHROID 150 MCG PO (05:25)
[2023-10-12 05:40] VITALS: BMI 38.8
[2023-10-12] MEDS: LOW STRENGTH ASPIRIN 81 MG PO (07:29)
[2023-10-12 07:50] VITALS: BP 132/75
[2023-10-12 09:11] LABS: Hemoglobin 16.7 g/dL (13.0-18.0); Mean Corp Hgb Conc. 34.5 g/dL (33.0-37.0); Mean Corpuscular Hgb 30.4 pg (27.0-31.0); Platelet Count 133 10^3/uL (130-400); Red Cell Dist. Width 14.4 % (11.5-14.5); White Blood Cell Count 8.4 10^3/uL (4.8-10.8)
[2023-10-12 09:22] LABS: Troponin I < 0.012 ng/ml
--- NOTE | 2023-10-12 10:05 | W.PN.CD ---
Today's Communication / Plan
-
ETT-MIBI now
Impression / Plan
-
SOB and chest tightness - occurs after exertion when sitting
- not during exertion.
- initial troponin < 0.012, then trended up (0.026-->0.028) but not over upper limit of normal
- will plan for inpatient nuclear stress test today
CAD - nonobstructive on cath 02/2021
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
- he stopped ASA last month due to nuisance bleeding with scratches from the chickens.
- restart ASA 81mg daily.
COPD - chronic.
- managed by Dr. Almonte.
- mild SOTERO, noncompliant with CPAP mask in the summer due to heat.
HTN - stable.
- continue atenolol, HCTZ, Aldactone.
HLD - LDL 110 from 02/2023 on Lipitor 40mg daily.
- goal LDL is < 70.
Subjective:
he is feeling well no further sob
Physical Exam
Vital Signs/Labs
Vital Signs
Temp Pulse Resp BP Pulse Ox
97.9 F 50 20 132/75 92
10/12/23 07:50 10/12/23 07:50 10/12/23 07:50 10/12/23 07:50 10/12/23 07:50
10/11/23 10/12/23 10/13/23
06:59 06:59 06:59
Actual Weight 119.6 kg 119.113 kg
10/12/23 08:45
10/10/23
10:50
Xpu-C-Oswjtwctiha Pept 240
LAB Results
10/10/23 10/10/23 10/10/23
10:50 14:36 20:18
Troponin I < 0.012 < 0.012 < 0.012
10/11/23 10/11/23 10/12/23
04:17 09:02 08:45
Troponin I 0.026 D 0.028 < 0.012
Physical Exam
Constitutional: No acute distress and Comfortable
Cardiovascular: Rhythm & rate is regular, Pedal edema is absent, JVD pressure is normal, Systolic murmur absent and Diastolic murmur absent
Respiratory: Respiratory effort normal, Lungs clear to auscul., Wheeze Absent, Crackles Absent and Rhonchi Absent
Neuro/Psych: AO x 3
Data Reviewed
-
Date of Service: October 12, 2023
EKG: Other (tele sinus)
[2023-10-12 11:01] LABS: Blood Urea Nitrogen 34 mg/dl (9-20); Calcium 10.2 mg/dl (8.4-10.2); Carbon Dioxide 24 mmol/L (22-30); Chloride 102 mmol/L (98-107); Estimated Creatinine Clearance 56 ml/min; Glucose 107 mg/dl (70-99); Potassium 4.5 mmol/L (3.5-5.1); Sodium 141 mmol/L (135-145); eGFR 48.85
--- NOTE | 2023-10-12 12:24 | W.PN.HOSP.TC ---
Today's Communication/Plan
-
Stress test. Discharge planning
Assessment / Plan
Assessment / Plan
Physical exam:
General: Well Developed, Well Nourished and No Apparent Distress
HEENT: Normocephalic, Atraumatic and Moist Mucous Membranes
Respiratory: Clear to Auscultation; Negative Wheezes, Rales or Rhonchi
Cardiac: Regular Rhythm and S1/S2
GI: Soft, Nontender and Nondistended
Musculoskeletal: Mild lower extremity edema bilaterally. No Clubbing, No Cyanosis
Neuro: Awake, Alert and Oriented
Psych: Calm
A/P:
Impression:
Chest pain/shortness of breath-for stress test
Conditions prior to presentation:
Hypertension
Hyperlipidemia
COPD-no evidence of exacerbation
VTE
Hypothyroidism
PLAN:
Cardiac enzymes within normal limits
Stress test planned for today-discussed with cardiology since test was not ordered but they came and talk to him and getting the test done today. Plan to discharge today if stress test normal.
surveillance system monitor
Cardiology consult appreciated
Inhalers as needed
Continue home antihypertensives
Continue statins
Continue thyroid replacement
DVT prophylaxis-Lovenox
Code status-Full code
Discharge planning only after cardiology clearance
Anticipated Discharge: Today
Subjective/Interval History
-
Date of Service: October 12, 2023
Patient with no chest pain or shortness of breath today
Objective Data
-
Labs:
Laboratory Results
10/12/23
08:45
WBC 8.4
Hgb 16.7
Hct 49.0
Plt Count 133
Sodium 141
Potassium 4.5
Chloride 102
Carbon Dioxide 24
BUN 34 H
Creatinine 1.5 H
Glucose 107 H
Calcium 10.2
Vital Signs:
Vital Signs
Temp Pulse Resp BP Pulse Ox
97.9 F 50 20 132/75 92
10/12/23 07:50 10/12/23 07:50 10/12/23 07:50 10/12/23 07:50 10/12/23 08:05
I&O
10/11/23 10/12/23 10/13/23
06:59 06:59 06:59
Intake Total 600 / 600
Balance 600 / 600
--- NOTE | 2023-10-12 12:25 | W.DCSUMMARY ---
Discharge Summary
Discharge Data
Date of Admission: 10/10/23
Date of Discharge: 10/12/23
-
Pending Results: No
Hospital Course
Patient is 73 years old male history hypertension hyperlipidemia PE thyroid cancer with hypothyroidism nonobstructive CAD obesity SOTERO presented to the hospital with shortness of breath and chest discomfort. Cardiology consulted. Patient had
cardiac enzymes checked and they were within normal limit although there was an upward trend so stress test was performed. Stress test came back with no signs of ischemia. Patient is feeling much better. Cardiology cleared her for discharge
today. He will be discharged in stable condition today.
Discharge Plan
-
Patient Disposition: Home (Routine Discharge)
Discharge Diagnosis/Procedures: Chest pain. Shortness of breath.
Diet: Low Cholesterol
Blood Work: Please PCP to order CBC, BMP within 1 week
Referrals:
Júnior Benson MD [Active] - in one to two weeks
Olman Veras MD [Family Provider] - in less than 1 week
Prescriptions:
Continued
atenolol 50 MG tablet
50 mg PO QPM
finasteride 5 MG tablet
5 mg PO QPM
hydrochlorothiazide 25 MG tablet
25 mg PO QPM
fluticasone propionate 1 SPRAY spray,suspension
2 spray intranasal DAILY
loratadine 10 MG tablet
10 mg PO DAILY
spironolactone 25 mg tablet
25 mg PO QPM
levothyroxine 150 mcg tablet
150 mcg PO DAILY@0600
aspirin 81 mg Tablet,Chewable
81 mg PO DAILY
albuterol sulfate [Ventolin HFA] 90 mcg/actuation Hfa Aerosol Inhaler
2 puff INHALATION Q6H PRN (Reason: shortness of breath)
rosuvastatin 40 mg tablet
40 mg PO QPM
Anoro Ellipta 62.5-25 mcg/actuation blister with device
1 ea INHALATION QPM
Discharge Orders:
Discharge Patient (As Directed); Ordered 10/12/23
Ordered By: Quincy Franco
Discharge Date and Time
Discharge Date/Time: 10/12/23 15:24
Print Language: SWAZI
[2023-10-12 14:27] VITALS: BP 125/81
--- NOTE | 2023-10-12 14:59 | CM ---
met with Urbano this am prior to his procedure. He was happy that he was able to have it done, as he had been disappointed yesterday when he found out it wasn't going to be done until today.
Urbano was feeling well and walked out on his own strength to go home this afternoon.
Plan: No discharge needs identified.
== END 2023-10-12 15:24 | disposition home or self-care (01) ==
LOC: 4 EAST ACU 16:46
PROVIDERS: Physician Assistant; ADMITTING PHYSICIAN Hospitalist; CONSULT PHYSICIAN Internal Medicine Cardiovascular Disease; EMERGENCY PHYSICIAN Emergency Medicine; FAMILY PHYSICIAN Family Medicine
DX: R07.89 Other chest pain (principal); R06.02 Shortness of breath; I10 Essential (primary) hypertension; E78.00 Pure hypercholesterolemia, unspecified; J44.9 Chronic obstructive pulmonary disease, unspecified; Q24.5 Malformation of coronary vessels; I25.10 Atherosclerotic heart disease of native coronary artery without angina pectoris; R79.89 Other specified abnormal findings of blood chemistry; E03.9 Hypothyroidism, unspecified; G47.33 Obstructive sleep apnea (adult) (pediatric); E66.9 Obesity, unspecified; J98.11 Atelectasis; K76.89 Other specified diseases of liver; R91.1 Solitary pulmonary nodule; R00.1 Bradycardia, unspecified; R53.83 Other fatigue; Z86.718 Personal history of other venous thrombosis and embolism; Z86.711 Personal history of pulmonary embolism; Z87.891 Personal history of nicotine dependence; Z68.38 Body mass index [BMI] 38.0-38.9, adult; Z85.850 Personal history of malignant neoplasm of thyroid; Z79.51 Long term (current) use of inhaled steroids; Z79.890 Hormone replacement therapy; Z79.82 Long term (current) use of aspirin; Z91.198 Patient's noncompliance with other medical treatment and regimen for other reason
CPT/HCPCS: 71275; 78452; 80048; 80053; 83880; 84484; 85025; 85027; 85379; 93005; 93017; 93970; 94640; 99285; A9500; G0378; Q9967

== ENCOUNTER → 2024-01-03 14:36 | Outpatient (REF) | payer MEDICARE, SELFPAY | LOC: RAD 14:36 | PROVIDERS: ATTENDING PHYSICIAN Family Medicine | DX: M79.605 Pain in left leg (principal); Z86.718 Personal history of other venous thrombosis and embolism | CPT/HCPCS: 93971 ==

== ENCOUNTER → 2024-08-10 15:08 | Outpatient (REF) | payer MEDICARE, SELFPAY | LOC: HWRAD 15:08 | PROVIDERS: ATTENDING PHYSICIAN Internal Medicine Endocrinology, Diabetes & Metabolism; FAMILY PHYSICIAN Family Medicine | DX: Z85.850 Personal history of malignant neoplasm of thyroid (principal) | CPT/HCPCS: 76536 ==

== ENCOUNTER → 2024-10-24 09:55 | Outpatient (REF) | payer MEDICARE, SELFPAY | LOC: HWRAD 09:55 | PROVIDERS: ATTENDING PHYSICIAN Internal Medicine Critical Care Medicine; FAMILY PHYSICIAN Family Medicine | DX: Z87.891 Personal history of nicotine dependence (principal) | CPT/HCPCS: 71271 ==

== ENCOUNTER → 2025-01-09 08:13 | Outpatient (REF) | payer MEDICARE, SELFPAY ==
[2025-01-09 09:13] LABS: Hematocrit 42.9 % (39.0-52.0); Hemoglobin 14.1 g/dL (13.0-18.0); Mean Corp Hgb Conc. 32.9 g/dL (33.0-37.0); Mean Corpuscular Volume 93.7 fL (80.0-94.0); Platelet Count 129 10^3/uL (130-400); Red Cell Dist. Width 13.8 % (11.5-14.5)
[2025-01-09 09:21] LABS: Blood Urea Nitrogen 17 mg/dl (9-20); Calcium 9.4 mg/dl (8.4-10.2); Carbon Dioxide 30 mmol/L (22-30); Chloride 103 mmol/L (98-107); Glucose 88 mg/dl (70-99); Potassium 4.7 mmol/L (3.5-5.1); Sodium 137 mmol/L (135-145); eGFR > 60.00
== END ==
LOC: SDSPAT 08:13
PROVIDERS: ATTENDING PHYSICIAN Specialist; FAMILY PHYSICIAN Family Medicine
DX: Z01.818 Encounter for other preprocedural examination (principal)
CPT/HCPCS: 80048; 85027; 93005

== ENCOUNTER 2025-01-16 06:32 | Day surgery (SDC) | payer MEDICARE, SELFPAY ==
[2025-01-09 08:24] VITALS: BMI 30.3
[2025-01-16] VITALS (12 sets, daily range): BP systolic 99–137; BP diastolic 50–96; BMI 30.3
[2025-01-16] MEDS: NORMOSOL-R/PLASMALYTE-A 1000 IV (13:50)
--- NOTE | 2025-01-16 17:18 | PTCARENOTE ---
Patient admitted from [facility]u post TURP .The patient is alert and oriented.he rates his pain at a 2-3 out of 10 and said it just feels like it is burning.Vital signs are stable.The bladder irrigation is infusing and the urine is a clear yellow.The
patient is in his bed with the call lucas in place.
[2025-01-16] MEDS: COLACE 100 MG PO (17:41)
[2025-01-16] MEDS: ALDACTONE 25 MG PO (17:42)
[2025-01-16] MEDS: FLOMAX 0.4 MG PO (17:42)
[2025-01-16] MEDS: ORETIC 25 MG PO (17:42)
[2025-01-16] MEDS: PROSCAR 5 MG PO (17:42)
[2025-01-16] MEDS: CRESTOR 40 MG PO (17:42)
[2025-01-16] MEDS: TENORMIN 50 MG PO (17:56)
[2025-01-17 03:06] VITALS: BP 100/56
[2025-01-17] MEDS: SYNTHROID 150 MCG PO (06:12)
[2025-01-17 07:00] VITALS: BP 110/74
[2025-01-17] MEDS: ZYLOPRIM 100 MG PO (07:22)
[2025-01-17] MEDS: CLARITIN 10 MG PO (07:22)
[2025-01-17] MEDS: COLACE 100 MG PO (07:22)
[2025-01-17] MEDS: SPIRIVA RESPIMAT 2.5 MCG 2 PUFF INH (07:52)
[2025-01-17] MEDS: STRIVERDI RESPIMAT 2 PUFF INH (07:52)
--- NOTE | 2025-01-17 09:39 | CM ---
Case Management Assessment
Demographics: Confirmed
Living situation: Patient lives with spouse in a 2 story home, 2 steps to enter, patient is independent with adl's and ambulation, no dme.
PCP: Dr Gareth galaviz
Pharmacy: [facility] in [place]
Plan; Home no needs
[2025-01-17 11:48] VITALS: BP 120/72
--- NOTE | 2025-01-17 12:22 | W.PN.URO.CBU ---
Today's Communication / Plan
-
discharge
Assessment / Plan
-
stable
Diagnosis
-
Date of Service: January 17, 2025
-
Patient Diagnosis: BPH with Urinary Dysfunction, s/p TURP
Post Op Day: 1
Subjective
-
has voided since Burrell removal
Objective
-
Vital Signs
Temp Pulse Resp BP Pulse Ox
98.7 F 55 16 120/72 98
01/17/25 11:48 01/17/25 11:48 01/17/25 11:48 01/17/25 11:48 01/17/25 11:48
Intake and Output
01/16/25 01/17/25 01/18/25
06:59 06:59 06:59
Intake Total 1200 / 1200 1200 / 1200
Output Total 850 / 850 150 / 150
Balance 350 / 350 1050 / 1050
Intake:
Oral fluids 1200 / 1200 1200 / 1200
Output:
Urine, Voided 150 / 150
True Urine Output from [facility] 850 / 850
Physical Exam
-
General - well developed, well nourished, no acute distress
Care Review
Data Reviewed
Discussed with: Family ( at bedside)
[2025-01-17] MEDS: COLACE PO (12:34)
== END 2025-01-17 12:51 | disposition home or self-care (01) ==
LOC: SDS 06:32
PROVIDERS: ATTENDING PHYSICIAN Specialist
DX: N40.0 Benign prostatic hyperplasia without lower urinary tract symptoms (principal); N39.9 Disorder of urinary system, unspecified; N35.919 Unspecified urethral stricture, male, unspecified site; N32.0 Bladder-neck obstruction; N32.89 Other specified disorders of bladder
CPT/HCPCS: 52601; 88305; 94640

== ENCOUNTER → 2025-01-28 16:15 | Outpatient (REF) | payer MEDICARE, SELFPAY | LOC: PAVMRI 16:15 | PROVIDERS: ATTENDING PHYSICIAN Family Medicine Sports Medicine; FAMILY PHYSICIAN Family Medicine | DX: M84.351A Stress fracture, right femur, initial encounter for fracture (principal); M84.361A Stress fracture, right tibia, initial encounter for fracture; M17.11 Unilateral primary osteoarthritis, right knee | CPT/HCPCS: 73721 ==